=== PATIENT | male | born 1985 ===

== ENCOUNTER 2024-07-03 08:48 | Outpatient (AMB) | payer OTHER, SELFPAY ==
--- NOTE | 2024-07-03 08:49 | MHC.OFFVIS ---
Vital Signs 07/03/24 08:55 Height 6 ft 2 in Weight 245 lb BMI 31.5 BP 143/89 H Blood Pressure Location Rt brachial Position Sitting Pulse 99 Intake Visit Reasons: Cervical soft tissue Intake Note: Patient is seen in office for evaluation and treatment of cervical soft tissue. Pt c/o: swollen lymph nodes on bilateral neck and axilla. First noticed April 2024. Tender to touch. Reports father at age 63 of lung ca. Neck and Axilla US @ [facility]: 06-05-2024 Epic Manager Required: No Accompanied by: Self / Same As Patient Allergies bupropion [From Wellbutrin] Allergy (Mild, Verified 07/03/24 08:59) Depression Medication List - Last Reconciled 07/03/24 by Best Olivo MD lisinopril 10 mg PO DAILY metoprolol succinate ER 12.5 mg PO BID HPI Comments Details: 39-year-old male patient presenting for evaluation of bilateral axillary and right cervical lymphadenopathy. This began last year and was noted to be tender to palpation. They have decreased in size since then however a recent ultrasound of the bilateral axilla confirmed multiple enlarged lymph nodes including in the left axilla a lymph node measuring 2.1 by 1 x 1.7 cm in the right axilla a node measuring 2.3 x 0.6 x 1.2 cm. The right neck revealed a 2.5 x 0.5 x 1.3 cm possible reactive lymph node. He reports the nodes seemed to come and go fairly quickly usually within a week and tend to be uncomfortable when swollen. He currently is unable to feel any enlarged lymph nodes. Denies fever, chills, night sweats, but has lost weight with dieting. [facility] Medical History History of urethral stricture Surgical History Hx of cystoscopy (10/05/15) Hx of wisdom tooth extraction Family History Father Lung cancer Paternal Grandfather Lung cancer Paternal Grandmother Lung cancer Paternal Uncle Lung cancer Social History Alcohol intake: never Patient Tobacco Use Status: Never used Tobacco Review of Systems Const All systems reviewed & are unremarkable except as noted in HPI and below Denies chills, Denies fever(s), Denies lethargy and Denies weakness Neuro Denies weakness Physical Exam Vital Signs: Last Vital Signs Pulse 99 07/03/24 08:55 BP 143/89 H 07/03/24 08:55 BMI result Body Mass Index 31.5 Const General: cooperative and no acute distress Nutritional Appearance: well nourished Orientation/consciousness: patient oriented x3 Limitations: no limitations HEENT Head: Yes normocephalic and Yes atraumatic Ears: hearing grossly normal bilaterally Neck Other: Examination of bilateral cervical regions revealed no enlarged lymph nodes at this time. Chest Other: Examination of bilateral axillary compartments reveals no definite enlarged lymph nodes and no tenderness to palpation. No overlying skin changes appreciated. Resp Effort & Inspection: normal respiratory effort, no audible wheezes, no cough and no respiratory distress Cardio Jugular venous distension: no JVD GI Inspection: Yes normal to inspection Skin Other: Warm, dry, no rash Neuro General: patient oriented x3 Extrem General: Yes no clubbing, cyanosis or edema Assessment & Plan Assessment & Plan (1) Lymphadenopathy: Comment: Bilateral axilla and right cervical lymphadenopathy Code(s): R59.1 - Generalized enlarged lymph nodes Category: Medical Plan 39-year-old male patient presenting with intermittent enlarged lymph nodes in both the axilla and right cervical regions. Examined today revealed no particularly enlarged lymph nodes at any site in the neck or axilla. He confirmed that he is unable to feel any nodes at this time as well. The fact that the nodes wax and wane in size speaks to a reactive lymph node. This may be related to his rheumatologic issues. I recommended a follow-up examination in 1 month to confirmed today's findings. He expressed understanding and agrees with the plan. Coding Level of Care Code New Pt Level 4 (99547) Diagnoses Lymphadenopathy R59.1
[2024-07-03 08:55] VITALS: BP 143/89; PULSE 99; BMI 31.5
--- OUTSIDE RECORDS SUMMARY | 2024-07-03 09:09 | XMS_ITS | Data Portability ---
Author Organization [facility] Pain Managem ent, PAIN OFFICE Address [address] [place] [address] Care Team Providers Care Puppy Trainer Name Role Phone MELECIO DUARTE Primary Care Provider Assessment Encounter Date Assessment Date Assessment LastModified by Organization Details LastModified Time 06/13/2017 06/13/2017 Ishan nicolas is a 32 year old man with left upper back pain. He has myofascial pain syndrome in his left upper back. Trigger points were palpated with reproduction of his pain in his left trapezius muscle and left rhomboid muscle . Trial of trigger point injections under ultrasound guidance were discussed with him. The risks and benefits of the procedure were discussed and he wishes to proceed and an appointment has been made for the same. We had a long discussion on the side effects of benzodiazepines such as dependence. 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 [email or web address] Not available 06/17/2017 10:08:45 06/17/2017 06/17/2017 Ishan nicolas is a 32 year old man with left upper back pain. He has myofascial pain syndrome in his left upper back. Trigger points were palpated with reproduction of his pain in his left trapezius muscle and left rhomboid muscle . He is here for a trial of trigger point injections under ultrasound guidance . The risks and benefits of the procedure were discussed and he wishes to proceed . He will follow up in one week for a repeat injection. [email or web address] Not available 06/17/2017 13:42:04 06/24/2017 06/24/2017 Ishan nicolas is a 32 year old man with left upper back pain. He has myofascial pain syndrome in his left upper back. Trigger points were palpated with reproduction of his pain in his left trapezius muscle and left rhomboid muscle . He is here for a follow up after a trial of trigger point injections under ultrasound guidance . He reports no pain benefit. I recommend a course of physical therapy at [facility] [place], [place] . He will start once he recovers from surgery. He will call for a referral to PT. adrianan Not available 06/27/2017 10:33:29 Plan of Treatment Reminders Order Date Submit Date Provider Last Modified By Organization Details Last Modified Time Details Appointments None record ed. Lab None record ed. Referral None record ed. Procedures None record ed. Surgeries None record ed. Imaging None record ed. Medication Orders None record ed. Patient TargetsNo targets recorded. Patient Instructions Encounter Date Encounter Id Patient Instructions Last Modified By Organization Details Last Modified Time 06/13/2017 [id number] He was advised against bed rest lasting longer than four days and to continue activities as tolerated. Benefits of smoking cessation were discussed with him. [email or web address] Not available 06/17/2017 09:58:04 06/17/2017 [id number] He was advised against bed rest lasting longer than four days and to continue activities as tolerated. Benefits of smoking cessation were discussed with him. [email or web address] Not available 06/17/2017 13:41:11 06/24/2017 [id number] He was advised against bed rest lasting longer than four days and to continue activities as tolerated. Benefits of smoking cessation were discussed with him. [email or web address] Not available 06/27/2017 10:32:05 Reason for Referral None Reported. Problems Name Problem SNOMED Code Status Onset Date Resolution Date Notes Provider Name and Address Organization Details Recorded Time Muscle pain 20608301 Active Nicole Majano MD [address] , [address], [place], [address] , [place] - [facility] 06/17/2017 09:42:34 Problem Notes None recorded. Procedures Surgical History Date Name Laterality Status Provider Name and Address Organization Details Recorded Time 8 Trigger Point Injections under ultrasound guidance completed Nicole Majano MD [address] [facility] , [address], [place], [address], [place] - [facility] 06/17/2017 13:28:03 Incision of urethra completed Nicole Majano MD [address] , [address], [place], [address], [facility] Pain Management 06/13/2017 15:31:17 Fragmenting of kidney stone completed Nicole Majano MD [address] , [address], [place], [address], [facility] Pain Management 06/13/2017 15:31:50 Imaging Results None recorded. Procedure Notes None recorded. Medical Equipment None Reported. Allergies No known drug allergies Medications Name Sig Start Date Stop Date Status Note LastModified by Organization Details LastModified Time cephalexin 250 mg capsule TAKE ONE CAPSULE BY MOUTH 3 TIMES A DAY . START TODAY AND CONTINUE TO TAKE AFTER SURGERY 06/13 completed Not Available Not Available Not Available phenazopyri dine 200 mg tablet TAKE 1 TABLET THREE TIMES A DAY NEEDED 06/13 completed Not Available Not Available Not Available amlodipine 5 mg tablet TAKE 1 TABLET EVERY DAY 06/13 completed Not Available Not Available Not Available tramadol 50 mg tablet TAKE 2 TABLET BY MOUTH EVERY 6 HOURS 06/13 completed Not Available Not Available Not Available oxycodone-a cetaminophe n 5 mg-325 mg tablet TAKE 1 TABLET BY MOUTH EVERY 3 TO 4 HOURS NEEDED 06/13 completed Not Available Not Available Not Available amitriptyli ne 10 mg tablet TAKE 1 TABLET EVERY DAY 06/13 completed Not Available Not Available Not Available lisinopril 10 mg tablet TAKE 1 TABLET BY MOUTH DAILY active Not Available Not Available No t Available metoprolol tartrate 50 mg tablet TAKE 1 TABLET BY MOUTH DAILY active Not Available Not Available No t Available diazepam 10 mg tablet TAKE 1 TABLET 1 HOUR PRIOR TO PROCEDURE 06/13 completed Not Available Not Available Not Available levofloxaci n 750 mg tablet TAKE 1 TABLET BY MOUTH DAILY X9 DAYS 06/13 completed Not Available Not Available Not Available zolpidem 10 mg tablet TAKE 1 TABLET BY MOUTH EVERY DAY AT BEDTIME NEEDED active Not Available Not Available No t Available oxybutynin chloride 5 mg tablet TAKE 1 TABLET BY MOUTH DAILY 06/13 completed Not Available Not Available Not Available diazepam 5 mg tablet active Not Available Not Available No t Available tizanidine 4 mg capsule 06/13 completed Not Available Not Available Not Available Vitals Date Recorded Body height Body mass index (BMI) Body weight Heart rate Oxygen saturation Oxygen saturation in Arterial blood by Pulse oximetry Systolic blood pressure Diastolic blood pressure Provider Name and Address Organization Details Last Updated DateTime 8 187.96 cm 27 kg/m2 36095.4 g 76 /min 100 % 100 % 145 mm[Hg] 93 mm[Hg] Nicole shin MD [address] , [address], [place], [address], [place] - [facility] Management 8 15:23:23 Date Recorded Body height Heart rate Oxygen saturation Oxygen saturation in Arterial blood by Pulse oximetry Systolic blood pressure Diastolic blood pressure Provider Name and Address Organization Details Last Updated DateTime 8 187.96 cm 74 /min 98 % 98 % 137 mm[Hg] 95 mm[Hg] Jennifer Nick [facility] Pain Management 8 13:03:53 Date Recorded Body height Heart rate Oxygen saturation Oxygen saturation in Arterial blood by Pulse oximetry Systolic blood pressure Diastolic blood pressure Provider Name and Address Organization Details Last Updated DateTime 8 187.96 cm 67 /min 100 % 100 % 132 mm[Hg] 82 mm[Hg] Jennifer Nick [facility] Pain Management 8 15:14:14 Social History Question Answer Notes LastModified by Organizat ion Details LastModified Time Tobacco Smoking Status Former Smoker quit 5 years ago Not Available [facility] 02/26/2020 03:16:12 What Is Your Level Of Alcohol Consumption? Occasional [id number] Information not available 02/26/2020 Which Illicit Or Recreational Drugs Have You Used? 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 With Others His Girl Friend Is Paraplegic [email or web address] Information not available 06/13/2017 Marital Status Single Informati on not available 06/13/2017 What Was The Date Of Your Most Recent Tobacco Screening? 06/26/2017 [id number] Information not available 02/26/2020 How Much Tobacco Do You Smoke? 0.5 PPD [id number] Information not available 02/26/2020 Sex: Unknown Functional Status None recorded. Mental Status None recorded. Family History Relationship Description Onset Age of this Age Resolved Age Notes LastModified by Organization Details LastModified Time Father Arthritis Spinal fusion (Lumba r), knee arthri tis [email or web address] Not available 06/13/2017 15:27:01 Father Malignant tumor of lung [email or web address] Not available 05/2017 15:27:27 Medical History Condition Response Kidney Stones Y Anxiety Disorder Y GERD/Reflux Y Hypertension Y Past Encounters Encounter ID Performer Location Encounter Start Date Encounter Closed Date Diagnosis/Indication Diagnosis SNOMED-CT Code Diagnosis ICD10 Code Diagnosis Note [id number] Nicole Majano MD PAIN OFFICE [address] [facility] [place] [address] 06/13/2017 15:01:40 06/17/2017 10:06:31 Muscle pain 61597436 M79.1 [id number] Nicole Majano MD PAIN OFFICE [address] [facility] [place] [address] 06/17/2017 12:48:44 06/18/2017 08:52:03 Muscle pain 61241737 M79.1 [id number] Nicole Majano MD PAIN OFFICE [address] [facility] [place] [address] 06/24/2017 14:58:39 06/27/2017 10:34:05 Muscle pain 95146591 M79.1 Health Concerns Section Related Observation LastModified by Organization Detai ls LastModified Time None Recorded Concern Status LastModified by Organization Details LastModified Time None Recorded Advance Directives Directive None Recorded Payers Encounter Date Sequence Insurance Name Policy Number Policy Romo Covered Member ID Romo Member ID Guarantor Name 06/13/2017 1 [facility] Ishan Rod [id number] Ishan Rod 06/17/2017 1 [facility] Ishan Rod [id number] Ishan Rod 06/24/2017 1 [facility] Ishan Rod [id number] Ishan Rod Notes Date Note Type Note Provider Name and Address Organization Details Recorded Time 06/13/2017 text/html Ishan nicolas is a 32 year old right handed man has complaints of pain in his left upper and mid back. He states the pain started spontaneously and is becoming greater. He describes the pain as a throbbing, cramping and aching pain . He has pain in his left shoulder. Current pain level is 5-7/10. Pain is relieved a little with the use of TENs unit. Pain interferes with his sleep. He had a course of physical therapy and chiropractic treatments with no pain benefit.He states he is on valium and diazepam 10 mg is the only medication which helps his pain.He has trialed baclofen, flexeril, tramadol , advil and tylenol with minimal pain benefit. He has no radiating pain , numbness or weakness in his upper extremities. He has no history of bladder or bowel incontinence.He states he has history of chronic low back pain for which he was on opioid pain medication. He decided to stop taking Opioid medications and enrolled in a methadone program and subsequently had taken suboxone for a few months and now is off all pain medications. He states he also suffers from migraines. 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 This is likely an incidental finding. Nicole Majano MD [address] [facility] , [address], [address], [facility] - Pain Management 06/17/2017 10:08:56 06/17/2017 text/html He is here for a trial of trigger point injection in left trapezius and rhomboid muscles under ultrasound guidance Nicole Majano MD [address] [facility] , [address], [place], [address], [facility] - Pain Management 06/26/2017 15:23:22 06/24/2017 text/html He is here for a follow up after a trigger point injection under ultrasound guidance. He reports no pain benefit. He states he continues to have pain in his left upper back , shoulder and chest region. He is having surgery for urethral obstruction in July. Nicole Majano MD [address] [facility] , [address], [place], [address], [facility] - Pain Management 07/04/2017 15:55:38
== END 2024-07-03 09:13 | disposition home or self-care (01) ==
PROVIDERS: PCP Internal Medicine; Referring Provider Internal Medicine; Visit Provider Surgery
DX: R59.1 Generalized enlarged lymph nodes (principal)
CPT/HCPCS: 99204